=== PATIENT | male | born 1980 ===

== ENCOUNTER 2017-12-01 12:54 | Emergency (ER) | payer OTHER ==
[2017-12-01 13:02] VITALS: RESP 18
[2017-12-01 14:48] LABS: BASO # 0.1 K/uL (0.0-0.2); EOS # 0.2 K/uL (0.0-0.7); EOS % 3.1 % (0.0-4.0); HEMOGLOBIN 14.4 g/dL (12.0-18.0); LYMPH # 2.2 K/uL (1.0-4.3); LYMPH % 38.2 % (20.0-40.0); MEAN CELL VOLUME 93.8 fL (80.0-94.0); MEAN CORPUSCULAR HEMOGLOBIN 32.3 pg (27.0-31.0); MEAN CORPUSCULAR HGB CONC 34.5 g/dL (33.0-37.0); MONO # 0.4 K/uL (0.0-0.8); MONO % 6.8 % (0.0-10.0); NEUT # 2.9 K/uL (1.8-7.0); NEUT % 50.9 % (50.0-75.0); RBC 4.47 Mil/uL (4.40-5.90); RED CELL DISTRIBUTION WIDTH 13.2 % (11.5-14.5); WHITE BLOOD COUNT 5.7 K/uL (4.8-10.8)
--- NOTE | 2017-12-01 14:51 | C.PDOC ---
History Of Present Illness <Catalino Fisher - Last Filed: 12/01/17 15:50> <Jake Post - Last Filed: 12/03/17 14:44> Coding Support Specialist: Devin Gonsalez ([id number]) Patient is a 36 year old male with no past medical history who presents to the ED with complaints of bloody bowel movement that has been on going for a month. Patient reports that he did not seek medical intervention because he thought his symptoms will disappear. Patient reports associated symptoms of pain with defecation, mild epigastric pain and dizziness. Patient denies chest pain, palpitations, SOB, alcohol abuse or exacerbation with food. Patient's last bowel movement was this morning and it was still bloody. In addition, patient reports use of 2-d3 tabs of advil every 8 days for the past month. (Catalino Fisher) History Per: Patient History/Exam Limitations: no limitations Onset/Duration Of Symptoms: Days, Persistent Current Symptoms Are (Timing): Still Present Severity: Mild Pain Scale Rating Of: 0 Location: Mild epigastric pain Recent travel outside of the [place]: Yes Additional History Per: Patient <PhillipCatalino Whaley - Last Filed: 12/01/17 15:50> <Jake Post - Last Filed: 12/03/17 14:44> Time Seen by Provider: 12/01/17 13:59 Chief Complaint (Nursing): Abdominal Pain Past Medical History Other Surgeries: Right shoulder history Family History: States: Unknown Family Hx - Social History Hx Tobacco Use: No Hx Alcohol Use: Yes (Socially, Ocassionally ) Hx Substance Use: No - Immunization History Hx Tetanus Toxoid Vaccination: No Hx Influenza Vaccination: No Hx Pneumococcal Vaccination: No <Catalino Fisher - Last Filed: 12/01/17 15:50> Vital Signs: Last Vital Signs Temp 97.6 F 12/01/17 16:18 Pulse 65 12/01/17 16:18 Resp 18 12/01/17 16:18 BP 116/78 12/01/17 16:18 Pulse Ox 97 12/01/17 16:18 Review Of Systems Constitutional: Positive for: Weakness. Negative for: Fever, Chills Cardiovascular: Positive for: Light Headedness. Negative for: Chest Pain, Palpitations Respiratory: Negative for: Shortness of Breath, Hemoptysis Gastrointestinal: Positive for: Hematochezia, Other (Pain with defecation ). Negative for: Nausea, Vomiting, Abdominal Pain, Hematemesis <Catalino Fisher - Last Filed: 12/01/17 15:50> Physical Exam - Physical Exam Appears: No Acute Distress Skin: Normal Color Head: Atraumatic, Normacephalic Eye(s): bilateral: Normal Inspection, EOMI Cardiovascular: Rhythm Regular, No Murmur Respiratory: Normal Breath Sounds, No Rales, No Rhonchi, No Wheezing Gastrointestinal/Abdominal: Bowel Sounds, Soft, Tenderness (Mild epigastric tenderness ) Rectal: Normal Exam, Rectal Tone, Heme Positive (Stool Occult positive ), No Maroon Stool, No Blood Streaked Stool Extremity: Normal ROM, No Tenderness, No Pedal Edema, No Calf Tenderness Neurological/Psych: Oriented x3, Normal Speech Disoriented To: Person, Place, Time, Situation Gait: Steady <Catalino Fisher - Last Filed: 12/01/17 15:50> ED Course And Treatment - Laboratory Results Result Diagrams: 12/01/17 14:45 12/01/17 14:45 O2 Sat by Pulse Oximetry: 96 <Nicolle Fisherjose Jovana - Last Filed: 12/01/17 15:50> - Laboratory Results Result Diagrams: 12/01/17 14:45 12/01/17 14:45 <Jake Post - Last Filed: 12/03/17 14:44> Medical Decision Making <Phillip,Kathyabrie E - Last Filed: 12/01/17 15:50> <Jake Post - Last Filed: 12/03/17 14:44> Medical Decision Making: Patient h/h is stable, no active gross bleeding, will discharge patient home to follow up with pmd in 2 days. (Jake Post) Disposition Discussed With : Jake Post Counseled Patient/Family Regarding: Diagnosis, Need For Followup - Disposition Disposition Time: 16:00 <Catalino Fisher Jovana - Last Filed: 12/01/17 15:50> Counseled Patient/Family Regarding: Studies Performed, Rx Given <Jake Post - Last Filed: 12/03/17 14:44> - Disposition Referrals: Chance Lawrence MD [Staff Provider] - [facility] [Provider Group] Disposition: HOME/ ROUTINE Condition: GOOD Additional Instructions: Please discharge patient home Please follow up with [facility] to establish care or any preferred primary care physician Please take Nexium 40mg PO once daily Please follow with GI physician, Dr. Lawrence outpatient for further work-up or any preferred GI physician in 2 days Please stop taking NSAIDs such as Aleeve, advil. You can take over the counter Tylenol for pain Please return to the hospital if symptoms worsens or severe symptoms Please take care Prescriptions: Esomeprazole Magnesium [Nexium] 40 mg PO DAILY 30 Days #30 ecc Instructions: Fecal Occult Blood Test, Bloody Stools Forms: General Discharge Instructions, [facility] (Armenian) - Clinical Impression Clinical Impression: Excessive use of nonsteroidal anti-inflammatory drugs (NSAIDs), Guaiac + stool Clinical Impression: (Ruled Out): Abdominal pain, Nausea, Vomiting, Abdominal distension, Abdominal colic, Abdominal bloating, Abdominal wall pain, Diarrhea
[2017-12-01 15:00] LABS: ALB/GLOB RATIO 1.4 (1.0-2.1); ALBUMIN 4.4 g/dL (3.5-5.0); ALT/SGPT 48 U/L (21-72); AST/SGOT 37 U/L (17-59); BLOOD UREA NITROGEN 12 mg/dL (9-20); CALCIUM 8.5 mg/dl (8.6-10.4); GFR AFRICAN-AMERICAN > 60; GFR NON-AFRICAN AMERICAN > 60; LIPASE 138 U/L (23-300)
[2017-12-01 16:19] VITALS: BP 116/78; PULSE 65; TEMP 97.6; O2SAT 97
== END 2017-12-01 16:26 | disposition home or self-care (01) ==
LOC: C.ER 12:54
DX: F19.90 Other psychoactive substance use, unspecified, uncomplicated (principal)
CPT/HCPCS: 80053; 83690; 85025; 96374; 99284; C9113